=== PATIENT | male | born 1980 | race Two or more races ===

== ENCOUNTER 2025-01-22 02:03 | Emergency (ER) | payer MEDICAID, OTHER ==
[~2025-01-22] VITALS: Ht 182.9 cm; Wt 93.1 kg
--- NOTE | 2025-01-22 03:26 | ED.PDOC ---
Psychiatric HPI Comments 45-year-old male who came to ER for suicide ideations. Patient states he has been feeling suicidal ever since his girlfriend broke up with him. Has been having plans of stabbing himself. Has history of self-mutilation. Has been admitted twice due to suicide ideations. Denies being homicidal Chief Complaint: Suicidal Time Seen by MD: 03:25 Reviewed Notes: Nurses Notes Information Source: Patient Mode of Arrival: Ambulatory Severity: Unable to Care for Self, Unable to Control Self Severity of Pain: Moderate Severity of Mental Status: Moderate Severity of Symptoms: Moderate Past Medical History PAST MEDICAL HISTORY: Anxiety, Depression Surgical History: Denies all surgeries Family History Family History: Reviewed,noncontributory to illness Social History Smoker: Non-Smoker Alcohol: Denies ETOH Use Drugs: Marijuana Lives In: Home Constitutional: denies: chills, diaphoresis, fatigue, fever, malaise, sweats, weakness, others EENTM: denies: blurred vision, double vision, ear bleeding, ear discharge, ear drainage, ear pain, ear ringing, eye pain, eye redness, hearing loss, mouth pain, mouth swelling, nasal discharge, nose bleeding, nose congestion, nose pain , photophobia, tearing, throat pain, throat swelling, voice changes, others Respiratory: denies: cough, hemoptysis, orthopnea, SOB at rest, shortness of breath, SOB with excertion, stridor, wheezing, others Cardiovascular: denies: chest pain, dizzy spells, diaphoresis, Dyspnea on exertion, edema, irregular heart beat, left arm pain, lightheadedness, palpitations, PND, syncope, others Gastrointestinal: denies: abdomen distended, abdominal pain, blood streaked bowels, constipated, diarrhea, dysphagia, difficulty swallowing, hematemesis, melena, nausea, poor appetite, poor fluid intake, rectal bleeding, rectal pain, vomiting, others Genitourinary: denies: burning, dysuria, flank pain, frequency, hematuria, incontinence, penile discharge, penile sore, pain, testicle pain, testicle swelling, urgency, others Neurological: denies: dizziness, fainting, headache, left sided numbness, left sided weakness, numbness, paresthesia, pre-existing deficit, right sided numbness, right sided weakness, seizure, speech problems, tingling, tremors, weakness, others Musculoskeletal: denies: back pain, gout, joint pain, joint swelling, muscle pain, muscle stiffness, neck pain, others Integumetry: denies: bruises, change in color, change in hair/nails, dryness, laceration, lesions, lumps, rash, wounds, others Allergic/Immunocompromised: denies: Difficulty Healing, Frequent Infections, Hives, Itching, others Hematologic/Lymphatic: denies: anemia, blood clots, easy bleeding, easy bruising, swollen glands, others Endocrine: denies: excessive hunger, excessive sweating, excessive thirst, excessive urination, flushing, intolerance to cold, intolerance to heat, unexplained weight gain, unexplained weight loss, others Psychiatric: reports: anxiety, suicidal; denies: bipolar disorder, depression, hopeless, panic disorder, schizophrenia, sleepless, others Physical Exam General Appearance: No Apparent Distress, Normal HEENT: Normal ENT Inspection, Pharynx Normal, TMs Normal Neck: Full Range of Motion, Non-Tender, Normal, Normal Inspection Respiratory: Chest Non-Tender, Lungs Clear, No Accessory Muscle Use, No Respiratory Distress, Normal Breath Sounds Cardiovascular: No Edema, No JVD, No Murmur, No Gallop, Normal Peripheral Pulses, Regular Rate/Rhythm Breast Exam: Deferred Gastrointestinal: No Organomegaly, Non Tender, No Pulsatile Mass, Normal Bowel Sounds, Soft Genitalia: Deferred Pelvic: Deferred Rectal: Deferred Extremities: No calf tenderness, Normal capillary refill, Normal inspection, Normal range of motion, Non-tender, No pedal edema Musculoskeletal : Apperance: Normal Neurologic: Alert, meal temperer II-XII nml as Tested, No Motor Deficits, Normal Affect, Normal Mood, No Sensory Deficits Cerebellar Function: Normal Reflexes: Normal Skin: Dry, Normal Color, Warm Lymphatic: No Adenopathy Was a procedure done? Was a procedure done?: No Psych Differential Dx OD Differential Dx: Anxiety, Bipolar Disorder, Depression, Suicidal Attempt Suicidal Differential Dx: Anxiety, Depression, Schizoprenia X-Ray, Labs, Meds, VS Vital Signs Date Time Temp Pulse Resp B/P (MAP) Pulse Ox O2 Delivery O2 Flow Rate FiO2 01/22/25 19:30 98.6 70 18 139/99 (112) 97 98.6 01/22/25 02:26 98.2 86 20 135/103 97 98.2 Lab Test 01/22/25 03:42 Range/Units Salicylates Level < 3.0 -30 mg/dL Acetaminophen Level < 2.0 L 10.0-20.0 UG/ML Plasma/Serum Blood Alcohol < 3.0 <10 mg/dL Time of 1ST Reevaluation: 03:22 Reevaluation 1ST: Unchanged Time of 2ND Reevaluation: 05:12 Reevaluation 2ND: Unchanged Time of 3RD Reevaluation: 20:33 Reevaluation 3RD: Unchanged Patient Education/Counseling: Diagnosis, Treatment Family Education/Counseling: No Family Present Comments This is a patient who has a history of suicidal ideations and previous hospital cessation due to suicidal ideations. He presents to the ER complained about suicidal ideation but without having taking any actions. Patient has a remain calm and stable in the ER. He is medically cleared and waiting for tele psychiatry to assessed him. I was signed out this patient's care to Dr. Garcia at [facility] telepsych recommends lexapro and Remeron. lexapro is not avilable in our formulary. i will order another SSRI, such as paroxetine Departure 1 Departure Time of Disposition: 18:55 Impression: Primary Impression: Suicidal ideation Disposition: 02 SHORT TERM HOSPITAL Condition: Serious Discharged With: Self Critical Care Note Critical Care Time?: Yes (55 min-critical care time only) Critical care comment: Due to concerns for patients condition deteriorating, the care required my highest level of attention and readiness to intervene. I assessed the patient, reviewed the medical records, ordered the appropriate tests and treatments, then reassessed for results and responsiveness. I communicated with medical personnel and consultants and formulated a plan of care. Total critical care time excludes any procedures Stability Stability form required: No Heart Score Heart Score: Heart Score Response (Comments) Value History N/A 0 EKG N/A 0 Age N/A 0 Risk Factors N/A 0 Troponin N/A 0 Total 0 ADDENDUM ADDENDUM ADDENDUM : I took over patient's care from Dr. Parra. At this time I have spoken Dr. Paez, psychiatrist advised that patient is not safe for discharge. Patient is voluntary at this time and we are waiting for placement. I personally scribed for BRADLEY PARRA MD ([facility]) on 01/22/25 at 03:25. Electronically submitted by Andrew Delvalle ([email or web address]). BRADLEY PARRA MD Jan 22, 2025 03:25 SKIP GARCIA MD Jan 22, 2025 18:55
[2025-01-22 04:55] LABS: Acetaminophen < 2.0 UG/ML (10.0-20.0); Salicylate < 3.0 mg/dL (-30)
--- NOTE | 2025-01-22 12:09 | DVHINCON2 ---
Date of Service if different f: Jan 22, 2025 Time of Service: 13:44 Consultation ([facility]) Progress: Declining Labs Laboratory Tests Test 01/22/25 03:42 Salicylates Level < 3.0 mg/dL (-30) Acetaminophen Level < 2.0 UG/ML (10.0-20.0) Plasma/Serum Blood Alcohol < 3.0 mg/dL (<10) Appetite: Poor Side effects of medications: No Appearance: Stated age Psychomotor activity: Retarted Behavioral: Withdrawn Eye contact: Limited Speech: Monotone Affect: Irritable Mood: Depressed Thought processes: Linear/Goal-directed Thought content: WNL Suicidal ideations: Present Plan for (Suicide) Cut or Stab Himself Homicidal ideations: Absent Orientation: Person, Place, Time Memory intact: Recent Intellect: Average Abstractability: Marginal Concentration: Adequate Attention: Adequate Judgement: Poor Insight: Poor Vitals Vital Signs Date Time Temp Pulse Resp B/P (MAP) Pulse Ox O2 Delivery O2 Flow Rate FiO2 01/22/25 02:26 98.2 86 20 135/103 97 98.2 Treatment plan discussed: With staff (ED MD) Medication adjusted: No Labs ordered: No Type: Voluntary The patient is a 45-year-old single male, currently homeless and unemployed. He carries a psychiatric history significant for Bipolar Disorder, Borderline Personality Disorder (BPD), and Major Depressive Disorder (MDD). His past medications include gabapentin, Prozac, Risperdal, Seroquel, and Depakote. He also has a history of THC, methamphetamine, and opioid use, and a long- standing pattern of noncompliance with medications and aftercare. He presented to the ED for evaluation of worsening depressive symptoms and suicidal ideation. The evaluation was conducted via telepsychiatry. History of Present Illness At the time of assessment, the patient appeared constricted but cooperative. He reported feeling increasingly overwhelmed by anxiety and depression, noting a significant worsening after a recent breakup with his girlfriend of five years. He described feelings of hopelessness, helplessness, and worthlessness, stating that he has nothing to live for. He endorsed suicidal ideation with specific thoughts of cutting or stabbing himself, though no attempt was made. He denied significant appetite changes. The patient was alert and oriented, answering questions coherently and in an organized manner. He reported that his emotional state had improved slightly since arriving at the ED. He continued to endorse depressive symptoms including low mood, hopelessness, helplessness, and anhedonia, and confirmed ongoing suicidal thoughts. He denied auditory or visual hallucinations. There was no evidence of delusions, internal preoccupation, or overt disorganization during the interview. His thought process was logical, organized, and goal-directed, though mildly circumstantial at times. He was easily redirectable and maintained good behavioral control. No agitation, aggression, impulsivity, or affective instability were observed. He denied recent alcohol or illicit drug use, despite a remote history of THC, meth, and opioid use. Psychoeducation was provided regarding medication adherence, appropriate dosing, relapse warning signs, and the impact of stress, grief, and anxiety on mood stability. The importance of outpatient follow-up, coping strategies, sleep hygiene, and self-care was reinforced. The patient verbalized understanding. Past Psychiatric History Diagnoses: Bipolar Disorder, Borderline Personality Disorder, Major Depressive Disorder Past Medications: gabapentin, Prozac, Risperdal, Seroquel, Depakote Denies history of inpatient psychiatric admissions (last admission unknown) Denies past suicide attempts Denies history of violence Social / Developmental History Single, currently homeless, and unemployed Denies access to weapons Denies service Denies history of sexual, physical, or emotional abuse Denies probation, parole, or skilled nursing history Substance Use History Denies current alcohol or drug use Remote history of THC, methamphetamine, and opioid use Past Medical History / Allergies No significant medical history Allergies: NKDA Review of Systems Aside from the psychiatric symptoms described above: Constitutional: Denies fevers, chills, weight gain Eye/ENT: Denies vision or hearing changes Respiratory: Denies shortness of breath or cough Cardiovascular: Denies chest pain or palpitations GI: Denies nausea, vomiting, abdominal pain Musculoskeletal: Denies weakness or pain Neurological: Denies seizures, headaches, focal deficits Psychiatric: As per HPI Musculoskeletal / Neurological Examination Normal body habitus Muscle strength and tone normal No spasticity or EPS Gait and station normal Mental Status Examination General Appearance: Middle-aged male examined at bedside. No acute distress. Grooming and hygiene fair. Attitude: Alert, cooperative Eye Contact: Good Psychomotor: No agitation or retardation LOC: Alert and awake Orientation: Fully oriented to time, place, and person Mood/Affect: Mood anxious and depressed; affect constricted, congruent Speech: Normal volume, rate, and tone Cognition: Attention fair; memory intact Thought Process: Logical, coherent, linear; no loosened associations or flight of ideas Thought Content: Denies hallucinations, delusions, or paranoia Endorses suicidal ideation with thoughts of cutting or stabbing himself Denies homicidal ideation Insight/Judgment: Fair but limited in context of SI History of Present Illness Assessment This is a 45-year-old single male with significant psychiatric history (Bipolar Disorder, BPD, MDD), past polysubstance use, homelessness, and chronic medication noncompliance, presenting with worsening depression and active suicidal ideation with a plan. He displays major risk factors including: recent relationship loss homelessness and lack of support chronic mental illness medication noncompliance poor coping skills recurrent SI Protective factors are limited. The patient continues to endorse suicidal ideation with plan, poor coping, and severe depressive symptoms, demonstrating inability to maintain safety in the community. He meets criteria for [facility] admission for safety, stabilization, medication management, and monitoring. Legal Status Voluntary (Vol.) Please consider [id number] if pt want to leave the ED or reconsult psychiatry Diagnosis Psychiatric Major Depressive Disorder, Severe (F32.2) Bipolar Disorder, by history Borderline Personality Disorder, by history Polysubstance Use Disorder, in partial remission (THC, methamphetamine, opioids) Medical None reported Plan Admit to [facility] for continued stabilization, safety, and monitoring Continue coordination with ED/medical team for medical clearance and stabilization Start Lexapro 5 mg PO daily Start Remeron 15 mg PO qHS PRN for insomnia Provide supportive psychotherapy and reinforce coping strategies Provide psychoeducation on medication adherence, relapse warning signs, stress management, and sleep hygiene Encourage consistent outpatient psychiatric follow-up after stabilization Case discussed with ED MD Assessment/Diagnosis/Plan Reviewed: Consults NELLY THORNTON MD Jan 22, 2025 12:09
[2025-01-22] MEDS: MIRTAZAPINE 30 MG TAB PO ONE (22:13)
[2025-01-23 09:00] VITALS: BP 141/96; PULSE 92; RESP 18; TEMP 98.6; O2SAT 98
[2025-01-23] MEDS ORDERED: PARoxetine 20 MG TAB PO ONE (10:00)
== END 2025-01-23 09:21 | disposition short-term general hospital (02) ==
LOC: ER 02:03
DX: R45.851 Suicidal ideations (principal); F41.9 Anxiety disorder, unspecified; F19.10 Other psychoactive substance abuse, uncomplicated; Z79.899 Other long term (current) drug therapy
CPT/HCPCS: 36415; 80320; 80329